=== PATIENT | male | born 1965 | race Caucasian/White ===

== ENCOUNTER 2016-09-30 13:16 | Observation (INO) ==
[2016-09-30] MEDS ORDERED: *HR* Morphine 2 MG/ML SYRINGE IVP PRN ×2 (13:58→17:38)
[2016-09-30] MEDS ORDERED: *HR* Promethazine 25 MG/ML VIAL IVP PRN ×3 (13:58→17:38)
[2016-09-30] MEDS ORDERED: Ondansetron 4 MG/2 ML VIAL IVP PRN ×2 (13:58→17:38)
[2016-09-30] MEDS ORDERED: *HR* HYDROcodone/Acet 5/325 mg TABLET PO PRN ×2 (13:58→17:38)
[2016-09-30] MEDS ORDERED: Naloxone 0.4 MG/ML INJ IVP PRN ×2 (13:58→17:38)
[2016-09-30] MEDS ORDERED: 0.9 % Sodium Chloride 1,000 ML IVC SCH ×2 (14:00→17:38)
--- NOTE | 2016-09-30 14:03 | Urology History & Physical ---
Date of Encounter: 09/30/16 Time of Encounter: 14:03 Assessment and Plan (1) Ureteral stone with hydronephrosis Current Visit: Yes Status: Acute Patient states he can no longer handle the discomfort from the stone. We have elected for direct admission to the hospital. Stone extraction either this evening or tomorrow. We'll check labs. Perform preoperative EKG. Medication for pain control and antiemetics. IV fluids. Patient understands the risk of the stone extraction which does include injury to his urinary tract, perforations bladder, stricture of his urethra or ureter. We discussed the need for ureteral stent following the procedure. He was given option for continued trial of passage. History of Present Illness Chief complaint: flank pain HPI: Mr. Tatum is a 51 year old male one-week history of increasing left flank discomfort. CT scan with a 4 mm distal ureteral stone. States he can no longer handle the discomfort. He actually had to have someone relieve his shift at work the pain was so severe. No fever. Past Med Surg Social Fam HX - Past Medical History Medical history: diabetes, hyperlipidemia, hypertension - Social History Smoking Status: Current every day smoker Alcohol use: occasionally Drug use: none Medications and Allergies Hydrocodone/Acetaminophen [[place]kel[place] 5-325 Tablet] 1 tab PO Q6H #10 tab 03/14/16 [Rx ] Ondansetron ODT [Zofran ODT] 4 mg SL Q8HR #14 tab.rapdis 03/14/16 [Rx] Tamsulosin [Flomax] 0.4 mg PO DAILY #10 capsule 03/14/16 [Rx] Allergies No Known Allergies Allergy (Verified 03/14/16 16:28) Review of Systems - Constitutional no chills, no fever(s) - EENT Nose, mouth and throat: no dizziness - Cardiovascular no chest pain at rest - Respiratory no cough - Gastrointestinal abdominal pain, nausea - Genitourinary flank pain - Musculoskeletal back pain - Integumentary no erythema - Neurological no confusion - Psychiatric no anxiety - Hematologic/Lymphatic no easy bleeding Exam Initial Vital Signs Pulse Ox 96 09/30/16 13:44 - General physical appearance Present: well developed, no distress, moderate pain - Eyes Present: PERRL - ENT Present: normal nares - Neck Present: no masses - Respiratory Present: normal respiratory effort - Abdomen Abdomen: Present: soft - Integumentary Present: no rash - Neurologic Present: normal coordination - Musculoskeletal Present: normal gait Urology Results - Labs All other labs normal.
[2016-09-30 14:48] LABS: Basophils % 0.4 %; Eosinophils # 0.2 K/mcL (0.0-0.6); Eosinophils % 1.9 %; Hematocrit 43.2 % (37.5-50.1); Hemoglobin 14.4 g/dL (12.9-16.9); Immature Granulocytes % 0.2 % (0-4); Lymphocytes # 2.6 K/mcL (0.6-4.6); Lymphocytes % 31.5 %; Mean Corpuscular HGB Conc 33.3 g/dL (31.6-35.5); Mean Corpuscular Hemoglobin 28.5 pg (28.0-33.3); Mean Corpuscular Volume 85.5 fL (83.0-100.0); Mean Platelet Volume 10.1 fL (9.4-12.4); Monocytes # 0.6 K/mcL (0.0-1.3); Platelet Count 189 K/mcL (140-400); Red Blood Count 5.05 M/mcL (4.19-5.50); Red Cell Distribution Width 12.6 % (11.5-14.5)
[2016-09-30 15:00] LABS: BUN/Creatinine Ratio 20 (6-26); Blood Urea Nitrogen 21 mg/dL (8-26); Calcium 9.5 mg/dL (8.6-10.8); Carbon Dioxide 28 mEq/L (19-29); Chloride 105 mEq/L (98-109); Glucose 130 mg/dL (70-99); Osmolality,Calculated 289 (280-300); Potassium 3.9 mEq/L (3.5-4.5); Sodium 137 mEq/L (136-145); eGFR For African Americans > 60 (> 60); eGFR For Non-African Americans > 60 (> 60)
[2016-09-30] MEDS ORDERED: *HR* Propofol 200 MG/20 ML VIAL IVP ONE ×2 (15:10→15:36)
[2016-09-30] MEDS ORDERED: *HR* FentaNYL (PF) 100 MCG/2 ML VIAL ONE ×2 (15:10→15:40)
[2016-09-30] MEDS ORDERED: Lidocaine -MPF 2% 2 ML VIAL ONE (15:11)
--- NOTE | 2016-09-30 15:20 | Anesthesia Evaluation PreOp ---
Date of Encounter: 09/30/16 Time of Encounter: 15:15 - Past History Planned Operation: L-Ureteral Stone Extraction w/ Laser Cardiac History: HTN (maintained on Hctz), Hyperlipidemia (no current medications) Pulmonary History: Smoker, COPD (tx w/ProAir prn) Other Medical History: Renal (4mm distal ureteral stone), Diabetes Type II ( maintained on Metformin) Anesthesia History: Past Anesthesia Alcohol Use: occasionally Drug use: none Medications and Allergies Hydrocodone/Acetaminophen [[place] 5-325 Tablet] 1 tab PO Q6H #10 tab 03/14/16 [Rx ] Ondansetron ODT [Zofran ODT] 4 mg SL Q8HR #14 tab.rapdis 03/14/16 [Rx] Tamsulosin [Flomax] 0.4 mg PO DAILY #10 capsule 03/14/16 [Rx] Allergies No Known Allergies Allergy (Verified 03/14/16 16:28) - Meds/Allergy Pre-op Review Medications Reviewed: Yes Allergies Reviewed: Yes Beta Blockers on Current Med List: No Anesthesia Results - Labs 09/30/16 14:32 09/30/16 14:32 Anesthesia Exam Vital Signs Temp Pulse Resp BP Pulse Ox 09/30/16 14:01 98.2 F 84 16 146/85 96 09/30/16 13:44 96 Intake and Output 09/29/16 09/30/16 09/30/16 23:59 07:59 15:59 Intake Total 0 / 0 Output Total 0 / 0 Balance 0 / 0 Intake: Oral 0 / 0 Output: Urine 0 / 0 Other: Meal NPO Percent of Meal Consumed 0% Weight 142.882 kg Patient Weight 09/30/16 23:59 Weight 142.882 kg NPO (# of Hours): MNoc - HEENT Pupil (Motor): Pupils equal, EOMI Mallampati: II Teeth: Missing (several missing lower teeth [molars, premolars]), Edentulous ( upper) Oral Opening: Greater than 3 - WATER USE INSPECTOR LOC: Oriented WATER USE INSPECTOR Motor: Normal RUE, Normal LUE, Normal RLE, Normal LLE, Normal Face WATER USE INSPECTOR Sensory: Normal: RUE, LUE, RLE, LLE, Face - Cardiac Rhythm: Regular Murmur: None - Pulmonary Breath Sounds: bilateral Clear Respiratory Effort: Symmetrical Anesthesia Assess/Plan ASA Score: 3 (MO, Smoker, HTN, Chol,) Modified Issue Scale for Level of Consciousness: Cooperative, oriented, and tranquil Anesthetic Plan: General Monitoring Plan: Standard Monitors Recovery Plan: PACU Anes Supervising Prov Stmt: Pt seen/evaluated, R&B discussed, questions answered and consent obtained. Tanna Chavarria MD
[2016-09-30] MEDS ORDERED: Lidocaine -MPF 4% 5 ML AMPUL ONE (15:33)
[2016-09-30] MEDS ORDERED: *HR* Succinylcholine 200 MG/10 ML VIAL IVP ONE (15:36)
[2016-09-30] MEDS ORDERED: Ondansetron 4 MG/2 ML VIAL ONE (15:38)
[2016-09-30] MEDS ORDERED: Dexamethasone 4 MG/ML VIAL ONE (15:38)
[2016-09-30] MEDS ORDERED: Famotidine 20 MG/2 ML VIAL ONE (15:47)
[2016-09-30] MEDS ORDERED: Metoclopramide 10 MG/2 ML VIAL ONE (15:47)
[2016-09-30] MEDS ORDERED: Acetaminophen IV 1,000 MG/100 ML INFUS..BTL ONE (15:47)
[2016-09-30] MEDS ORDERED: *HR* HYDROmorphone (PF) 1 MG/ML SYRINGE IVP PRN (16:39)
--- NOTE | 2016-09-30 17:06 | Discharge Summary ---
Date of Encounter: 09/30/16 Time of Encounter: 17:04 - Discharge Diagnosis (1) Ureteral stone with hydronephrosis Priority: Primary Status: Resolved - Discharge Medications Prescriptions: OxyCODONE/APAP 5/325 [Percocet 5/325 MG] 1 tab PO QID PRN #15 tablet PRN Reason: Pain Phenazopyridine HCl [Pyridium] 200 mg PO TIDAC PRN #20 tab PRN Reason: burning with urination Home Medications: Aspirin [Lo-Dose Aspirin EC] 81 mg PO DAILY 09/30/16 [History] Hydrochlorothiazide 25 mg PO DAILY 09/30/16 [History] Ibuprofen 800 mg PO TID PRN 09/30/16 [History] Metformin [Glucophage] 1,000 mg PO BID 09/30/16 [History] OxyCODONE/APAP 5/325 [Percocet 5/325 MG] 1 tab PO QID PRN #15 tablet 09/30/16 [ Rx] Phenazopyridine HCl [Pyridium] 200 mg PO TIDAC PRN #20 tab 09/30/16 [Rx] Allergies/Adverse Reactions: Allergies No Known Allergies Allergy (Verified 03/14/16 16:28) Labs on day of discharge: Labs from last 24 hours 09/30/16 09/30/16 14:32 14:32 WBC 8.4 RBC 5.05 Hgb 14.4 Hct 43.2 MCV 85.5 MCH 28.5 MCHC 33.3 RDW 12.6 Plt Count 189 MPV 10.1 Immature Gran % 0.2 Seg Neutrophils % 59.0 Lymphocytes % 31.5 Monocytes % 7.0 Eosinophils % 1.9 Basophils % 0.4 Neutrophils # 5.0 Lymphocytes # 2.6 Monocytes # 0.6 Eosinophils # 0.2 Basophils # 0.0 Sodium 137 Potassium 3.9 Chloride 105 Carbon Dioxide 28 BUN 21 Creatinine 1.05 Est GFR ( Amer) > 60 Est GFR (Non-Af Amer) > 60 BUN/Creatinine Ratio 20 Glucose 130 H Calculated Osmolality 289 Calcium 9.5 Date of admission: 09/30/16 13:29 Primary care physician: Ailin Cleveland CNP Discharging clinician: Jermain Munoz Anticipated date of discharge: 09/30/16 - Patient Status Disposition: Home, Self-Care Condition: Good Functional capacity at discharge: independent ambulation Overall status at discharge: patient is progressing back to baseline - Discharge Instructions Follow Up With: Ailin Cleveland CNP [Primary Care Provider] - Jermain Munoz MD [Partnered Physician] - (Monday afternoon for stent removal) Additional Instructions: Expect urgency, frequency, burning on urination, and blood in the urine. This is normal. Symptoms may be worse with increased activity. Call if symptoms are excessive or fever over 101 Stent will be removed on Monday in the office. - Diet and Activity Activity: increase activity as tolerated Diet: diabetic diet - Hospital Course Hospital course: Mr. Tatum is a 51 year old male admitted with an obstructing distal left ureteral stone. Status post stone extraction. Plan on discharging this evening or tomorrow morning if stable postoperatively - Time Spent with Patient Total time spent providing and/or coordinating discharge services: Exam Initial Vital Signs Pulse Ox 96 09/30/16 13:44 - General physical appearance Present: well developed, no distress
--- NOTE | 2016-09-30 17:10 | Operative Note ---
Date of procedure: 09/30/16 Pre-op diagnosis: lefft distal ureteral stone Post-op diagnosis: same Procedure: Left ureteroscopic stone extraction. Left ureteral stent placement Anesthesia: GETA Surgeon: Jermain Munoz Estimated blood loss (cc): 0 Specimen: Stone Condition: stable Disposition: PACU Procedure in Detail: PROCEDURE IN DETAIL: Patient was taken back to the operating room, positioned supine on the operating table. Anesthesia was applied without complication. They were moved into dorsal lithotomy. Careful attention was maintained to cushion all pressure points for patient's safety. They were prepped and draped in sterile fashion. Time-out was performed with the proper patient and procedure. A 21-Liberian rigid cystoscope was inserted into the bladder without difficulty. Systematic examination of bladder revealed no abnormalities. The ureteral orifice was cannulated using a 5-Liberian ureteral Catheter and zip wire was placed through the 5-Liberian and confirmed in the renal pelvis with fluoroscopy. A semi-rigid ureteroscope was carefully inserted into the bladder and guided into the ureteral oriface. At that point, the stone was encountered and I felt that it did not require fragmentation for safe extraction. 1.9 tipples basket was used to remove the stone without fragmentation. All stone in the ureter was removed. A 4.8 x 28 ureteral stent was placed over the zip wire under fluoroscopy without complication. The bladder was drained along with the stone fragments. They were collected and sent for stone analysis. The string was left attached to the stent and secured to the patient for easy removal in approximately 72 hours
[2016-09-30] MEDS ORDERED: Ipratropium/Albuterol Neb 3 ML ONE (17:13)
--- NOTE | 2016-09-30 17:25 | Anesthesia Evaluation Post Op ---
Date of Encounter: 09/30/16 Time of Encounter: 17:25 - Vital Signs Vital Signs: Vital Signs/O2 Sat/Glucose, Most Recent Temp Pulse Resp BP Pulse Ox 97.6 F 75 16 119/72 98 09/30/16 16:58 09/30/16 17:18 09/30/16 17:18 09/30/16 17:18 09/30/16 17:18 Blood Glucose* 102 - Lungs Lungs: Clear Ascult./Percussion - Airway Airway: Non-obstructed - Cardiovascular Regular Rate - Mental Status Mental Status: Alert & Oriented, Answers Appropriately - Pain Pain Scale: 0 Pain Scale used: Numeric (1 - 10) - Nausea Vomiting Nausea Vomiting: Not Present - Hydration Hydration: NPO - Discharge PostOp Status: Transfer Patient to floor
[2016-09-30] MEDS ORDERED: Ibuprofen 800 MG TABLET PO PRN (17:38)
--- NOTE | 2016-09-30 18:24 | Electrocardiograph Report ---
[facility] Test Date: 2016-09-30 Pat Name: Heladio Tatum Department: 114 Room: 3A24 Gender: M Supervisor Cellars: WERO : [id number] Requested By: Jermain Munoz Order Number: [id number] Reading MD: Hilary Hanks DO Measurements Intervals Lillian Rate: 79 P: 59 ID: [id number] QRS: -40 QRSD: 152 T: 47 QT: 385 QTc: 419 Interpretive Statements SINUS RHYTHM MARKED LEFT AXIS DEVIATION RIGHT BUNDLE BRANCH BLOCK Electronically Signed On 09-30-2016 18:23:00 EDT by Hilary Hanks DO
[2016-09-30 18:55] VITALS: BP 149/85
[2016-09-30] MEDS ORDERED: *HR* Metformin 500 MG TABLET PO SCH (21:00)
[2016-10-01] MEDS ORDERED: hydroCHLOROthiazide 25 MG TABLET PO SCH (09:00)
== END 2016-09-30 20:48 | disposition home or self-care (01) ==
LOC: 3ANU
PROVIDERS: ADMIT Urology; ATTEND Urology